=== PATIENT | female | born 1980 | race Caucasian/White ===

== ENCOUNTER → 2016-06-23 | Outpatient (CLI) | payer OTHER ==
[~2016-06-23] MED LIST: CETI5TAB5 PO; CETICHW4 PO; DOCU-94 PO; EPP3/2 IM; FMR25 PO; PRENTAB26 PO; PSYL0.524 PO; RANTIDINE
== END | disposition home or self-care (01) ==
LOC: C.LAB 13:29
PROVIDERS: ATTEND Obstetrics & Gynecology
DX: Z32.00 Encounter for pregnancy test, result unknown (principal)

== ENCOUNTER → 2016-07-11 | Outpatient (CLI) | payer OTHER ==
[2016-07-11 20:15] LABS: MANUAL MICROSCOPIC REQUIRED? NO; REVIEW REQ? NO; URINE APPEARANCE CLEAR (CLEAR); URINE BILIRUBIN NEG (NEG); URINE NITRITE NEG (NEG); URINE PH 5.5 (4.5-7.5); URINE SPECIFIC GRAVITY 1.008 (1.000-1.030); UROBILINOGEN NEG (NEG)
[2016-07-11 20:16] LABS: URINE COLOR YELLOW
== END | disposition home or self-care (01) ==
LOC: C.LABSPEC 17:38
PROVIDERS: ATTEND Obstetrics & Gynecology
DX: O09.00 Supervision of pregnancy with history of infertility, unspecified trimester (principal); Z3A.00 Weeks of gestation of pregnancy not specified

== ENCOUNTER → 2016-07-18 | Outpatient (CLI) | payer OTHER ==
[2016-07-22 09:32] LABS: CHLAMYDIA TRACH RNA*** NOT DETECTED (NOT DETECTED); GC (NEIS GONORRHOEAE)RNA** NOT DETECTED (NOT DETECTED)
== END | disposition home or self-care (01) ==
LOC: C.LABSPEC 17:29
PROVIDERS: ATTEND Obstetrics & Gynecology
DX: O09.00 Supervision of pregnancy with history of infertility, unspecified trimester (principal); Z3A.00 Weeks of gestation of pregnancy not specified

== ENCOUNTER → 2016-07-21 | Outpatient (CLI) | payer OTHER ==
[2016-07-21 07:04] LABS: PATIENT HEIGHT 162.6 cm
[2016-07-21 10:20] LABS: URINE TOTAL PROTEIN 8.4 mg/dl (0-11.9)
[2016-07-21 11:08] LABS: CREATININE 0.62 mg/dl (0.6-1.2); URINE TOTAL PROTEIN CALC 113.4 mg/24 hr (0-149.1)
== END | disposition home or self-care (01) ==
LOC: C.LABSPEC 06:51
PROVIDERS: ATTEND Obstetrics & Gynecology
DX: O10.911 Unspecified pre-existing hypertension complicating pregnancy, first trimester (principal); Z3A.00 Weeks of gestation of pregnancy not specified

== ENCOUNTER 2016-08-13 14:38 | Emergency (ER) | payer OTHER ==
[~2016-08-13] VITALS: Ht 162.6 cm; Wt 75.8 kg
[~2016-08-13 14:38] MED LIST changes: -CETI5TAB5 PO; -DOCU-94 PO; -EPP3/2 IM; -PSYL0.524 PO; -RANTIDINE
[2016-08-13 14:59] VITALS: TEMP 37; Ht 162.6 cm; Wt 75.8 kg
[2016-08-13] MEDS ORDERED: ACETAMINOPHEN 325 MG TAB PO STA (15:17)
[2016-08-13] MEDS ORDERED: DOCU-94 PO (15:52)
[2016-08-13] MEDS ORDERED: PRENTAB26 PO (15:52)
[2016-08-13] MEDS ORDERED: PSYL0.524 PO (15:52)
[2016-08-13 15:53] LABS: BASO % 0.4 %; BASO ABS # 0.03 K/uL (0-0.2); COMPLETE YES; IG% 0.1 %; LYMPH % 33.5 %; LYMPH ABS # 2.61 K/uL (1.2-3.4); MEAN CELL VOLUME 82.8 fL (80-100); MEAN CORPUSCULAR HEMOGLOBIN 29.3 pg (25-34); MEAN CORPUSCULAR HGB CONC 35.4 g/dl (32-36); MEAN PLATELET VOLUME 8.8 fL (7.4-10.4); MONO % 7.6 %; NEUT % 57.4 %; PLATELET COUNT 263 K/uL (130-400); RED BLOOD COUNT 4.47 M/uL (4.2-5.4)
[2016-08-13] MEDS ORDERED: EPP3/2 IM (15:53)
[2016-08-13 16:04] LABS: URINE APPEARANCE CLEAR (CLEAR); URINE BILIRUBIN NEG (NEG); URINE COLOR YELLOW; URINE NITRITE NEG (NEG); UROBILINOGEN NEG (NEG); ZZUR CULT IF INDIC CLEAN CATCH NO
[2016-08-13 16:06] LABS: MANUAL MICROSCOPIC REQUIRED? NO; REVIEW REQ? NO
[2016-08-13 16:22] LABS: ALT/SGPT 21 U/L (12-78); AST/SGOT 11 U/L (15-37); BLOOD UREA NITROGEN 8 mg/dl (7-18); BUN/CREATININE RATIO 12.9 (10-20); CALCIUM 9.1 mg/dl (8.5-10.1); CARBON DIOXIDE 22 mmol/L (21-32); CHLORIDE 106 mmol/L (98-107); CREATININE 0.64 mg/dl (0.60-1.20); GLUCOSE 82 mg/dl (70-99); MAGNESIUM 2.3 mg/dl (1.8-2.4); POTASSIUM 3.4 mmol/L (3.5-5.1); SODIUM 138 mmol/L (136-145)
[2016-08-13 16:30] LABS: ALKALINE PHOSPHATASE 74 U/L (45-117); THYROID STIMULATING HORMONE 0.953 uIu/ml (0.300-4.500)
--- NOTE | 2016-08-13 17:12 | EMERGENCY ROOM VISIT NOTE ---
History First contact with patient: 15:06 Chief Complaint: HYPERTENSION Stated Complaint: HIGH BP-12 WKS. , REFERRED BY PCP History of Present Illness The patient is a 36 year old female who presents to the Emergency Department by private vehicle for evaluation of her elevated blood pressure. The patient reports that she has full weeks . They did have difficulty conceiving and has had a closely monitored to this point. She does have a history of essential hypertension for which she was on Norvasc approximately 5 years ago. Her blood pressure has been controlled by diet and exercise most recently. She has had an RIGHT-sided mild, dull, headache over the past 3 days. She felt somewhat jittery today as well. She had her blood pressure taken by a nurse in this facility and it was found to be 154/103. This concerned the patient so she contacted her [facility] office who she reports had initiated an evaluation to monitor her blood pressure throughout her . She spoke with Dr. Oliva who had referred the patient over to her primary care provider. She then spoke with Dr. Cheung who subsequently referred the patient to the emergency Department for further evaluation and management. The patient still complains of a mild RIGHT-sided headache. This is not the worst headache of her life. She reports no other associated symptoms. She rates her discomfort a 3/10. She is tried nothing for pain at this point. She denies any dizziness, lightheadedness, blurry vision, double vision, tinnitus, nausea, vomiting, neck pain/stiffness, chest pain, palpitations, short of breath, pleuritic pain, or abdominal pain. She denies any vaginal bleeding or discharge. She reports no pelvic pain or cramping. Review of Systems A complete 10-point Review of Systems was discussed with the patient, with pertinent positives and negatives listed in the History of Present Illness. All remaining Review of Systems questions can be considered negative unless otherwise specified. Social History Smoking Status: Never Smoker Smokeless Tobacco Use: No Alcohol Use: occasionally Marital Status: Housing Status: lives with significant other Occupation Status: employed Current/Historical Medications Scheduled Multivit/Min/Iron/Fol Ac/Pren ( Vitamin), 2 TABS PO DAILY Scheduled PRN Docusate Sodium (Colace), 100 MG PO BID PRN for Constipation Epinephrine (Epipen), 0.3 MG IM UD PRN for ALLERGIC REACTION Psyllium (Metamucil), 1 DOSE PO UD PRN for Constipation Allergies Coded Allergies: Latex1 -Allergic Contact Dermititis (Verified Allergy, Mild, RASH, 11/16/14 ) Loratadine (Verified Allergy, Mild, HIVES, 11/16/14) Benzyl Alcohol (Verified Allergy, Unknown, ITCHY, 11/16/14) Prochlorperazine (Verified Allergy, Unknown, ITCHY, 11/16/14) Saccharin (Verified Allergy, Unknown, ITCHY, 11/16/14) Sulfa Antibiotics (Verified Allergy, Unknown, RASH, 11/16/14) Physical Exam Vital Signs Date Time Temp Pulse Resp B/P Pulse Ox O2 Delivery O2 Flow Rate FiO2 08/13/16 17:33 86 16 122/78 97 08/13/16 16:37 78 08/13/16 15:29 120 18 136/92 96 Room Air 08/13/16 14:59 37.0 106 16 145/95 98 Room Air Pain Rating (0-10): 4 Physical Exam VITAL SIGNS - Vital signs and nursing notes were reviewed. GENERAL - 36-year-old female appearing her stated age who is in no acute distress. Communicates well with provider and answers questions appropriately. HEAD - Normocephalic, Atraumatic. No Meyers's Sign or Raccoon's Eyes. No depressed skull fractures palpable. EYES - PERRL with EOMI bilaterally. Sclera anicteric. Palpebral conjunctiva pink and moist with no injection noted. EARS - No deformities of external structures noted on gross examination bilaterally. No pain elicited with palpation of the tragus bilaterally. External auditory canals without discharge or otorrhea. Tympanic membranes pearly swanson without retraction or bulging. NOSE - Midline and without cyanosis. No epistaxis or purulent drainage noted. Septum midline without deviation or septal hematoma noted. MOUTH/OROPHARYNX - Without perioral cyanosis. Buccal mucosa pink and moist and without leukoplakia. Tongue midline with equal elevation of palate bilaterally. No tonsillar hypertrophy, erythema, or exudates noted. Good dentition noted. NECK - Neck with FROM. Supple to palpation. No lymphadenopathy noted. No nuchal rigidity. LUNGS - Chest wall symmetric without accessory muscle use, intercostals retractions, or central cyanosis. Normal vesicular breath sounds CTA B/L. No wheezes, rales, or rhonchi appreciated. CARDIAC - RRR with S1/S2. No murmur, rubs, or gallops appreciated. ABDOMEN - Abdominal contour flat and without pulsations or visible masses. BS normoactive all four quadrants. No tenderness, palpable masses, hepatosplenomegaly, or ascites noted. EXTREMITIES - No pretibial edema present. +3/5 radial and dorsalis pedis pulses palpated throughout. FROM with no tremors, fasciculations, or clonus noted on PROM throughout. +5/5 strength noted in UE/LE bilaterally. NEUROLOGIC - Cranial nerves II through XII grossly intact. Sensory intact to light touch throughout. PSYCH - A&Ox3 and cooperates fully with examiner. Pt is very pleasant and interacts well with examiner. Medical Decision & Procedures Laboratory Results 08/13/16 15:25 Red Blood Count 4.47, Mean Corpuscular Volume 82.8, Mean Corpuscular Hemoglobin 29.3, Mean Corpuscular Hemoglobin Concent 35.4, Mean Platelet Volume 8.8, Neutrophils (%) (Auto) 57.4, Lymphocytes (%) (Auto) 33.5, Monocytes (%) (Auto) 7.6, Eosinophils (%) (Auto) 1.0, Basophils (%) (Auto) 0.4, Neutrophils # (Auto) 4.48, Lymphocytes # (Auto) 2.61, Monocytes # (Auto) 0.59, Eosinophils # (Auto) 0.08, Basophils # (Auto) 0.03 08/13/16 15:25 Test 08/13/16 15:25 08/13/16 15:30 White Blood Count 7.80 K/uL (4.8-10.8) Red Blood Count 4.47 M/uL (4.2-5.4) Hemoglobin 13.1 g/dL (12.0-16.0) Hematocrit 37.0 % (37-47) Mean Corpuscular Volume 82.8 fL (80-100) Mean Corpuscular Hemoglobin 29.3 pg (25-34) Mean Corpuscular Hemoglobin Concent 35.4 g/dl (32-36) Platelet Count 263 K/uL (130-400) Mean Platelet Volume 8.8 fL (7.4-10.4) Neutrophils (%) (Auto) 57.4 % Lymphocytes (%) (Auto) 33.5 % Monocytes (%) (Auto) 7.6 % Eosinophils (%) (Auto) 1.0 % Basophils (%) (Auto) 0.4 % Neutrophils # (Auto) 4.48 K/uL (1.4-6.5) Lymphocytes # (Auto) 2.61 K/uL (1.2-3.4) Monocytes # (Auto) 0.59 K/uL (0.11-0.59) Eosinophils # (Auto) 0.08 K/uL (0-0.5) Basophils # (Auto) 0.03 K/uL (0-0.2) RDW Standard Deviation 41.0 fL (36.4-46.3) RDW Coefficient of Variation 13.6 % (11.5-14.5) Immature Granulocyte % (Auto) 0.1 % Immature Granulocyte # (Auto) 0.01 K/uL (0.00-0.02) Anion Gap 10.0 mmol/L (3-11) Est Creatinine Clear Calc Drug Dose 123.5 ml/min Estimated GFR () 134.9 Estimated GFR (Non- 116.4 BUN/Creatinine Ratio 12.9 (10-20) Calcium Level 9.1 mg/dl (8.5-10.1) Phosphorus Level 4.0 mg/dl (2.5-4.9) Magnesium Level 2.3 mg/dl (1.8-2.4) Total Bilirubin 0.3 mg/dl (0.2-1) Aspartate Amino Transf (AST/SGOT) 11 U/L (15-37) Alanine Aminotransferase (ALT/SGPT) 21 U/L (12-78) Alkaline Phosphatase 74 U/L (45-117) Total Creatine Kinase 59 U/L (26-192) Creatine Kinase MB < 0.5 ng/ml (0.5-3.6) Creatine Kinase MB Ratio (0-3.0) Troponin I < 0.015 ng/ml (0-0.045) Total Protein 7.9 gm/dl (6.4-8.2) Albumin 4.0 gm/dl (3.4-5.0) Globulin 3.9 gm/dl (2.5-4.0) Albumin/Globulin Ratio 1.0 (0.9-2) Lipase 174 U/L (73-393) Thyroid Stimulating Hormone (TSH) 0.953 uIu/ml (0.300-4.500) Urine Color YELLOW Urine Appearance CLEAR (CLEAR) Urine pH 6.0 (4.5-7.5) Urine Specific Docena 1.000 (1.000-1.030) Urine Protein NEG (NEG) Urine Glucose (UA) NEG (NEG) Urine Ketones NEG (NEG) Urine Occult Blood NEG (NEG) Urine Nitrite NEG (NEG) Urine Bilirubin NEG (NEG) Urine Urobilinogen NEG (NEG) Urine Leukocyte Esterase NEG (NEG) Medications Administered Medications (Trade) Dose Ordered Sig/Flori Route Start Time Stop Time Status Last Admin Dose Admin Acetaminophen (Tylenol Tab) 650 mg NOW STAT PO 08/13/16 15:17 08/13/16 15:20 DC 08/13/16 15:27 325 MG Procedure Patient was placed on the cardiac rn and monitored throughout the entire extent of their stay. In addition, the patient's pulse oximetry was monitored throughout the entire stay. Any abnormalities or aberrancies were addressed appropriately. ECG Indication: other (hypertension) Rate (beats per minute): 95 Rhythm: normal sinus Findings: no acute ischemic change, no ectopy Change: no significant change (from 03/06/2016.) ED Course Patient was seen and evaluated by myself. Labs were drawn, saline lock in place. EKG was obtained. Patient was provided 650 mg Tylenol orally. She declines and only takes 325. Laboratory results demonstrate no acute leukocytosis, worrisome anemia, or bandemia. The patient has no significant electrolyte abnormalities. Cardiac enzymes are negative. Urinalysis does not suggest infection. I did discuss the case with the on-call [facility], Dr. Low. He sees no reason for medication or intervention otherwise this time. She is a follow-up appointment on Thursday. He suggests she keep this appointment at this time. Patient was educated on today's findings. She was educated on worrisome symptoms for return visit to the emergency department. Patient discharged home afebrile and in good condition. Medical Decision Given the patient's presentation and stated complaints, I did elect to perform the above-mentioned workup. Patient presents today with elevated blood pressure while taking her blood pressure in the work setting. Patient is anxious appearing. She has no pelvic cramping or vaginal bleeding of concern for . Her blood pressure was initially mildly elevated in triage. This decline nicely without real intervention. She was provided Tylenol for headache. She has no focal neurological deficits. This is not the worst of her life. I do not feel imaging studies are necessary at this point. The patient's labs are essentially unremarkable. The patient will follow-up with her [facility] on Thursday as scheduled. She will return for any changing or worsening symptoms. Patient discharged home in good condition. In the evaluation and treatment of this patient, the following differential diagnoses were considered: ACS, TN, PE, intracranial hemorrhage, CVA, TIA, preeclampsia, amongst others. Impression Primary Impression: Hypertension Additional Impression: Departure Information Dispostion Home / Self-Care Condition GOOD Referrals Catrachito Cheung D.O. (PCP) Yazan Low M.D. Patient Instructions My [facility] Additional Instructions You've been seen in the emergency department today for your hypertension. Please follow-up with your [facility] as scheduled. Return for any changing or worsening symptoms. Problem Qualifiers Primary Impression: Hypertension Hypertension type: unspecified secondary hypertension Qualified Codes: I15.9 - Secondary hypertension, unspecified Additional Impression: Weeks of gestation: 12 weeks Qualified Codes: Z3A.12 - 12 weeks gestation of
[2016-08-13 17:33] VITALS: BP 122/78; PULSE 86; O2SAT 97
== END 2016-08-13 17:35 | disposition home or self-care (01) ==
LOC: C.EDB 14:39 → C.EDD 17:35
DX: O10.011 Pre-existing essential hypertension complicating pregnancy, first trimester (principal); Z3A.12 12 weeks gestation of pregnancy

== ENCOUNTER → 2016-09-12 | Outpatient (CLI) | payer OTHER ==
[~2016-09-12] MED LIST changes: +CETI5TAB5 PO; -CETICHW4 PO; +DOCU-94 PO; +EPP3/2 IM; -FMR25 PO; +PSYL0.524 PO; +RANTIDINE
[2016-09-12 17:25] LABS: GTGD 50 Grams
[2016-09-17 08:34] LABS: AFP CONCENTRATION 25.6 NG/ML; AFP MULTIPLE OF MEDIAN 0.87; AFPTS INSULIN DEP DIABETIC? NO; AFPTS MATERNAL WT 173 LBS; ALPHA-FETOPROTEIN RACE CAUCASIAN=W; HISTORY OF NTD NO; REPEAT SAMPLE? NO
== END | disposition home or self-care (01) ==
LOC: C.LAB1850 15:44
PROVIDERS: ATTEND Obstetrics & Gynecology
DX: O09.511 Supervision of elderly primigravida, first trimester (principal)

== ENCOUNTER → 2016-09-16 | Outpatient (CLI) | payer OTHER | END | disposition home or self-care (01) | LOC: C.LAB 06:43 | PROVIDERS: ATTEND Obstetrics & Gynecology | DX: O09.522 Supervision of elderly multigravida, second trimester (principal); Z3A.00 Weeks of gestation of pregnancy not specified ==

== ENCOUNTER → 2016-12-08 | Outpatient (CLI) | payer OTHER ==
[2016-12-08 18:59] LABS: URINE APPEARANCE CLEAR (CLEAR); URINE BILIRUBIN NEG (NEG); URINE COLOR YELLOW; URINE EPITHELIAL CELL AUTO >30 /lpf (0-5); URINE NITRITE NEG (NEG); URINE PH 6.5 (4.5-7.5); URINE SPECIFIC GRAVITY 1.011 (1.000-1.030); UROBILINOGEN NEG (NEG)
[2016-12-08 19:01] LABS: MANUAL MICROSCOPIC REQUIRED? NO; REVIEW REQ? NO
== END | disposition home or self-care (01) ==
LOC: C.LABSPEC 17:21
PROVIDERS: ATTEND Obstetrics & Gynecology
DX: O09.92 Supervision of high risk pregnancy, unspecified, second trimester (principal)

== ENCOUNTER → 2016-12-12 | Outpatient (CLI) | payer OTHER ==
[~2016-12-12] MED LIST changes: -CETI5TAB5 PO; -RANTIDINE
[2016-12-12 18:53] LABS: GTGD 50 Grams
== END | disposition home or self-care (01) ==
LOC: C.LAB 14:46
PROVIDERS: ATTEND Obstetrics & Gynecology
DX: O09.92 Supervision of high risk pregnancy, unspecified, second trimester (principal); Z3A.00 Weeks of gestation of pregnancy not specified

== ENCOUNTER 2016-12-17 14:51 | Outpatient (CLI) | payer OTHER ==
[2016-12-17] MEDS ORDERED: LACTATED RINGER'S 1000ML 500 ML IV ONE (15:46)
== END 2016-12-17 17:46 | disposition home or self-care (01) ==
LOC: C.OPB 14:51 → C.LD 14:51 → C.OPB 17:46
PROVIDERS: ATTEND Obstetrics & Gynecology
DX: O99.89 Other specified diseases and conditions complicating pregnancy, childbirth and the puerperium (principal); M54.9 Dorsalgia, unspecified; O16.3 Unspecified maternal hypertension, third trimester; Z3A.29 29 weeks gestation of pregnancy

== ENCOUNTER 2017-01-30 16:01 | Outpatient (CLI) | payer OTHER ==
[~2017-01-30] VITALS: Ht 160 cm; Wt 92.1 kg
[~2017-01-30 16:01] MED LIST changes: -CETI5TAB5 PO; -RANTIDINE
[2017-01-30 16:34] VITALS: Ht 160 cm; Wt 92.1 kg
[2017-01-30] MEDS ORDERED: CETI5TAB5 PO (16:34)
[2017-01-30] MEDS ORDERED: RANTIDINE (16:34)
[2017-01-30 17:24] LABS: BASO % 0.2 %; BASO ABS # 0.02 K/uL (0-0.2); COMPLETE YES; EOS % 0.8 %; HEMATOCRIT 36.1 % (37-47); IG% 0.5 %; LYMPH % 27.6 %; LYMPH ABS # 2.69 K/uL (1.2-3.4); MEAN CELL VOLUME 85.3 fL (80-100); MEAN CORPUSCULAR HEMOGLOBIN 28.8 pg (25-34); MEAN CORPUSCULAR HGB CONC 33.8 g/dl (32-36); MEAN PLATELET VOLUME 9.6 fL (7.4-10.4); MONO % 10.4 %; NEUT % 60.5 %; PLATELET COUNT 228 K/uL (130-400); RED BLOOD COUNT 4.23 M/uL (4.2-5.4); WHITE BLOOD COUNT 9.75 K/uL (4.8-10.8)
[2017-01-30 17:29] LABS: ALT/SGPT 23 U/L (12-78); BLOOD UREA NITROGEN 6 mg/dl (7-18); BUN/CREATININE RATIO 11.5 (10-20); CARBON DIOXIDE 20 mmol/L (21-32); CHLORIDE 110 mmol/L (98-107); CREATININE 0.52 mg/dl (0.60-1.20); GLUCOSE 69 mg/dl (70-99); POTASSIUM 3.5 mmol/L (3.5-5.1); SODIUM 139 mmol/L (136-145)
[2017-01-30 17:32] LABS: ALB/GLOB RATIO 0.7 (0.9-2); ALKALINE PHOSPHATASE 152 U/L (45-117); AST/SGOT 16 U/L (15-37)
== END 2017-01-30 18:13 | disposition home or self-care (01) ==
LOC: C.OPB 16:01 → C.LD 16:02 → C.OPB 18:13
PROVIDERS: ATTEND Obstetrics & Gynecology
DX: Z34.83 Encounter for supervision of other normal pregnancy, third trimester (principal); Z3A.37 37 weeks gestation of pregnancy

== ENCOUNTER → 2017-01-30 | Outpatient (CLI) | payer OTHER ==
[~2017-01-30] MED LIST changes: +CETI5TAB5 PO; +RANTIDINE
== END | disposition home or self-care (01) ==
LOC: C.LABSPEC 17:36
PROVIDERS: ATTEND Obstetrics & Gynecology
DX: O09.93 Supervision of high risk pregnancy, unspecified, third trimester (principal)

== ENCOUNTER 2017-02-19 19:42 | Outpatient (CLI) | payer OTHER ==
[~2017-02-19] VITALS: Ht 162.6 cm; Wt 93.2 kg
[~2017-02-19 19:42] MED LIST changes: +CETI5TAB5 PO; -EPP3/2 IM; -PSYL0.524 PO; +RANTIDINE
[2017-02-19 20:39] VITALS: Ht 162.6 cm; Wt 93.2 kg
== END 2017-02-19 21:42 | disposition home or self-care (01) ==
LOC: C.LD 19:42 → C.OPB 19:42
PROVIDERS: ATTEND Obstetrics & Gynecology
DX: O16.3 Unspecified maternal hypertension, third trimester (principal); O09.523 Supervision of elderly multigravida, third trimester; Z3A.38 38 weeks gestation of pregnancy

== ENCOUNTER 2017-02-20 07:35 | Inpatient (IN) | payer OTHER ==
[~2017-02-20] VITALS: Ht 162.6 cm; Wt 93.0 kg
[2017-02-20] MEDS ORDERED: LACTATED RINGER'S 1000ML 1,000 ML IV PRN (09:04)
[2017-02-20] MEDS ORDERED: LACTATED RINGER'S 1000ML 500 ML IV PRN ×2 (09:06→13:16)
[2017-02-20] MEDS ORDERED: DOCUSATE SODIUM 100 MG CAP PO PRN (09:15)
[2017-02-20] MEDS ORDERED: OXYTOCIN 30 UNITS/500ML NSS IV PRN ×2 (09:15→22:15)
[2017-02-20 09:31] LABS: MEAN CELL VOLUME 84.9 fL (80-100); MEAN CORPUSCULAR HEMOGLOBIN 28.7 pg (25-34); MEAN CORPUSCULAR HGB CONC 33.8 g/dl (32-36); MEAN PLATELET VOLUME 9.7 fL (7.4-10.4); PLATELET COUNT 251 K/uL (130-400); RED BLOOD COUNT 4.36 M/uL (4.2-5.4)
[2017-02-20] MEDS: LACTATED RINGER'S 1000ML 1,000 ML IV SCH ×2 (09:40→16:05)
[2017-02-20 09:47] VITALS: Ht 162.6 cm; Wt 93.0 kg
[2017-02-20] MEDS ORDERED: EpHEDrine SULFATE INJ 50 MG/ML AMP ONE (12:29)
[2017-02-20] MEDS ORDERED: BUPIVACAINE 0.25% 30 ML VIAL ONE (12:29)
[2017-02-20] MEDS ORDERED: FENTANYL 2MCG/ML ROPIV 1.25MG/ML 100ML BAG EPI ONE (12:30)
[2017-02-20] MEDS ORDERED: FENTANYL CITRATE INJ 50 MCG/1 ML 2 ML VIAL ONE (12:30)
[2017-02-20] MEDS ORDERED: NALOXONE HCL INJ 1 MG in SODIUM CHLORIDE 0.9% 1000ML 1,000 ML IV PRN (13:16)
[2017-02-20] MEDS ORDERED: NALBUPHINE HCL INJ 10 MG/ML AMP IV PRN (13:30)
[2017-02-20] MEDS ORDERED: DiphenhydrAMINE HCL 50 MG/ML VIAL IV PRN (13:30)
[2017-02-20] MEDS ORDERED: ONDANSETRON INJ 2 MG/ML 2 ML VIAL IV PRN (13:30)
[2017-02-20] MEDS ORDERED: NALOXONE HCL INJ 0.4 MG/1 ML VIAL/CARP IV PRN (13:30)
[2017-02-20] MEDS ORDERED: EpHEDrine SULFATE INJ 50 MG/ML AMP IV PRN (13:30)
[2017-02-20] MEDS: FENTANYL 2MCG/ML ROPIV 1.25MG/ML 100ML BAG EPI PRN ×3 (15:12→20:06)
[2017-02-20] MEDS ORDERED: NURSING VERBAL MED ORDER ONE (20:45)
[2017-02-20] MEDS ORDERED: CARBOPROST TROMETHAMINE 250 MCG/ML AMP ONE (20:56)
[2017-02-20] MEDS ORDERED: MoRPHine SULFATE 10 MG/ML CARP/VIAL ONE (20:57)
[2017-02-20 20:59] LABS: HEMATOCRIT 34.4 % (37-47); MEAN CELL VOLUME 86.4 fL (80-100); MEAN CORPUSCULAR HEMOGLOBIN 28.6 pg (25-34); MEAN PLATELET VOLUME 9.2 fL (7.4-10.4); PLATELET COUNT 219 K/uL (130-400); RED BLOOD COUNT 3.98 M/uL (4.2-5.4)
[2017-02-20 21:02] LABS: MEAN CORPUSCULAR HGB CONC 33.1 g/dl (32-36)
[2017-02-20] MEDS ORDERED: LABETALOL HCL IV 5 MG/ML 20ML IV STA ×2 (21:06→21:07)
[2017-02-20 21:24] LABS: BUN/CREATININE RATIO 10.4 (10-20); CREATININE 0.72 mg/dl (0.60-1.20); POTASSIUM 3.5 mmol/L (3.5-5.1); URIC ACID 4.9 mg/dl (2.6-7.2)
[2017-02-20 21:30] LABS: ALB/GLOB RATIO 0.7 (0.9-2)
[2017-02-20] MEDS ORDERED: OXYCODONE/ACETAMINOPHEN 5-325 TAB PO PRN (22:15)
[2017-02-20] MEDS ORDERED: CARBOPROST TROMETHAMINE 250 MCG/ML AMP IM ONE (22:15)
[2017-02-20] MEDS ORDERED: HYDROCORTISONE ACETATE 25 MG SUPP PR PRN (22:15)
[2017-02-20] MEDS ORDERED: LANOLIN OINT EXT PRN ×2 (22:15)
[2017-02-20] MEDS ORDERED: BENZOCAINE 20% AER SPR 82.5 GM CAN EXT PRN (22:15)
[2017-02-20] MEDS ORDERED: SUPERCREAM 0.870 % 15GM JAR EXT PRN (22:15)
--- NOTE | 2017-02-20 23:23 | Anesthesia Procedure Note ---
Anesthesia Epidural Removal Nt Date & Time Feb 20, 2017 at 23:23 Vital Signs Pain Intensity: 1 Notes Mental Status: alert / awake / arousable, participated in evaluation Nausea / Vomiting: adequately controlled Pain: adequately controlled Airway Patency, RR, SpO2: stable & adequate BP & HR: stable & adequate Hydration State: stable & adequate Neuraxial Anesthesia: was administered Anesthetic Complications: no major complications apparent, pt satisfied with anesthetic care Epidural: removed without complications, with tip intact
--- NOTE | 2017-02-21 00:31 | DELIVERY SUMMARY ---
DATE OF OPERATION: 02/20/2017 PROCEDURE: Spontaneous vaginal delivery under epidural anesthesia with repair of cervical laceration and second-degree perineal laceration. SURGEON: Dr. Oliva. PREDELIVERY DIAGNOSES: 1. 37-year-old G2, P0-0-1-0 at 41 and 0. 2. Chronic hypertension. 3. Induction of labor. POSTDELIVERY DIAGNOSES: Same plus cervical laceration. ESTIMATED BLOOD LOSS: 500 mL. MEDICATIONS GIVEN: Hemabate. FINDINGS: Viable female with Apgars 8 and 9. Weight pending. Please see nursery records. DESCRIPTION OF DELIVERY: The patient progressed to complete with epidural anesthesia. She then began to push. She spontaneously vaginally delivered a viable female from the cephalic presentation with the head in the left occiput anterior position. The head delivered. No nuchal cord was noted. The anterior shoulder delivered, followed by the posterior shoulder, followed by the body. The baby was then placed on mother's abdomen. Delayed cord clamping was performed. The cord was then doubly clamped and cut. After waiting 1 minute, cord blood was obtained. The placenta was delivered spontaneously intact with a 3-vessel cord. The uterus and vagina were swept of all clots and debris. Pitocin was given. A second-degree perineal laceration was noted and repaired in standard fashion with 3-0 Vicryl. The patient continued to have bleeding. The fundus was firm. The cervix was inspected and a cervical laceration on the posterior aspect at approximately 6 o'clock was noted and was repaired with 3-0 Vicryl. Hemostasis was achieved. Sponge, instrument and needle counts were correct x2 at the conclusion of the delivery. The patient and the baby tolerated the delivery well. Vaginal packing was placed in the vagina to add some additional pressure to maintain hemostasis. This was checked 30 minutes after delivery and just a small amount of serosanguineous material was on the packing and it will be pulled at approximately 60 minutes after delivery to recheck bleeding. I attest to the content of the Intraoperative Record and any orders documented therein. Any exception s are noted below.
[2017-02-21 01:00] VITALS: BP 116/70; PULSE 97; TEMP 36.8
[2017-02-21] MEDS: IBUPROFEN 600 MG TAB PO PRN ×4 (01:16→17:09)
[2017-02-21 03:30] VITALS: BP 111/65; PULSE 89; TEMP 36.8; O2SAT 98
[2017-02-21 07:49] VITALS: BP 131/87; PULSE 84; TEMP 36.6; O2SAT 99
--- NOTE | 2017-02-21 08:02 | Progress Note ---
Subjective Feb 21, 2017. Subjective conversation w/ patient, physical exam, chart review, lab review Ambulation: ambulating normally Voiding: no voiding problems Passing Gas: Yes Diet Tolerance: Regular Diet Lochia: Moderate Feeding Type: Breast Feeding Pain: controlled Review of Systems Respiratory: No shortness of breath Cardiac: No chest pain Abdomen: No nausea, No vomiting Female : No dysuria Objective Vital Signs Date Time Temp Pulse Resp B/P (MAP) Pulse Ox O2 Delivery O2 Flow Rate FiO2 02/21/17 07:49 36.6 84 18 131/87 (102) 99 Room Air 02/21/17 03:30 36.8 89 20 111/65 (80) 98 Room Air 02/21/17 01:00 36.8 97 20 116/70 (85) Room Air 02/21/17 01:00 Room Air Physical Exam General Appearance: WELL-APPEARING, WD/WN, NO APPARENT DISTRESS Respiratory/Chest: lungs clear, normal breath sounds, no respiratory distress Cardiovascular: regular rate, rhythm, no gallop Abdomen: normal bowel sounds, soft Fundus: Firm, Tender (appropriately tender), Relation to Umbilicus (at level of U) Extremities: no calf tenderness Laboratory Results Last 24 Hours Test 02/20/17 09:12 02/20/17 20:48 02/21/17 05:27 White Blood Count 12.40 K/uL 14.60 K/uL Red Blood Count 4.36 M/uL 3.98 M/uL Hemoglobin 12.5 g/dL 11.4 g/dL 10.1 g/dL Hematocrit 37.0 % 34.4 % 31.0 % Mean Corpuscular Volume 84.9 fL 86.4 fL Mean Corpuscular Hemoglobin 28.7 pg 28.6 pg Mean Corpuscular Hemoglobin Concent 33.8 g/dl 33.1 g/dl RDW Standard Deviation 45.1 fL 46.8 fL RDW Coefficient of Variation 14.6 % 14.9 % Platelet Count 251 K/uL 219 K/uL Mean Platelet Volume 9.7 fL 9.2 fL Sodium Level 139 mmol/L Potassium Level 3.5 mmol/L Chloride Level 108 mmol/L Carbon Dioxide Level 21 mmol/L Anion Gap 10.0 mmol/L Blood Urea Nitrogen 8 mg/dl Creatinine 0.72 mg/dl Est Creatinine Clear Calc Drug Dose 120.6 ml/min Estimated GFR () 125.8 Estimated GFR (Non- 108.5 BUN/Creatinine Ratio 10.4 Random Glucose 87 mg/dl Uric Acid 4.9 mg/dl Calcium Level 8.0 mg/dl Total Bilirubin 0.4 mg/dl Aspartate Amino Transf (AST/SGOT) 15 U/L Alanine Aminotransferase (ALT/SGPT) 17 U/L Alkaline Phosphatase 170 U/L Total Protein 6.2 gm/dl Albumin 2.5 gm/dl Globulin 3.7 gm/dl Albumin/Globulin Ratio 0.7 Assessment and Plan Post- Day#: 1 Continue Routine Care: - Vital Signs reviewed and WNL. - Hgb 10.1 (yesterday 11.4. On admission was 12.5.) - Blood Type: A+, GBS - , Rubella Immune. - Monitor and Control pain with Motrin PRN, resume regular diet as tolerated, Monitor Lochia. - Encourage breast feeding. - Pt is doing well clinically. Denies headaches or dizziness. - Continue routine post care. BRIAN ESPARZA PGY1 FM RESIDENT Resident Physician Supervision Note: I was present with Dr. Esparza during the history and exam. I discussed the case with the resident and agree with the findings and plan as documented in the note. Any exceptions or clarifications are listed here: PPD#1, doing well. Continue routine care. Documented By: Fatoumata Oliva Resident Tracking Resident Involvement: Resident Care Provided Care Provided: OB Delivery
[2017-02-21] MEDS: DOCUSATE SODIUM 100 MG CAP PO SCH ×2 (08:15→20:19)
[2017-02-21] MEDS: CETIRIZINE HCL 10 MG TAB PO SCH (08:15)
[2017-02-21 12:00] VITALS: BP 147/93; PULSE 91; TEMP 36.7
[2017-02-21 17:00] VITALS: BP 137/86; PULSE 85; TEMP 36.6; O2SAT 99
[2017-02-21] MEDS ORDERED: BISACODYL 5 MG TABEC PO SCH (20:00)
[2017-02-21 20:15] VITALS: BP 128/84; PULSE 89; TEMP 36.8
[2017-02-22 00:40] VITALS: BP 139/89; PULSE 99; TEMP 36.7
[2017-02-22] MEDS: IBUPROFEN 600 MG TAB PO PRN (06:45)
[2017-02-22] MEDS: CETIRIZINE HCL 10 MG TAB PO SCH (07:54)
[2017-02-22] MEDS: DOCUSATE SODIUM 100 MG CAP PO SCH (07:55)
[2017-02-22 08:27] VITALS: BP 143/94; PULSE 94; TEMP 36.7
--- NOTE | 2017-02-22 09:17 | Progress Note ---
Subjective Feb 22, 2017. Subjective conversation w/ patient, physical exam, lab review Ambulation: ambulating normally Voiding: no voiding problems Passing Gas: Yes Diet Tolerance: Regular Diet Lochia: Small Feeding Type: Breast Feeding Pain: controlled Objective Vital Signs Date Time Temp Pulse Resp B/P (MAP) Pulse Ox O2 Delivery O2 Flow Rate FiO2 02/22/17 08:27 36.7 94 20 143/94 (110) 02/22/17 00:40 36.7 99 20 139/89 (106) Room Air 02/22/17 00:40 Room Air 02/21/17 20:15 36.8 89 20 128/84 (99) Room Air 02/21/17 17:00 36.6 85 19 137/86 (103) 99 Room Air 02/21/17 12:00 36.7 91 18 147/93 (111) Physical Exam General Appearance: WELL-APPEARING, WD/WN, NO APPARENT DISTRESS Respiratory/Chest: lungs clear, normal breath sounds Cardiovascular: regular rate, rhythm Abdomen: normal bowel sounds, non tender, soft Fundus: Firm, Non-Tender, Relation to Umbilicus (at u) Extremities: non-tender, normal inspection, + pedal edema (tr) Assessment and Plan Problem List Medical Problems: (1) Hypertension Status: Acute (2) Status: Acute Post- Day#: 2 Continue Routine Care: Doing well. Plan d/c. Instructions given.
--- NOTE | 2017-02-22 09:18 | Discharge Instructions ---
Discharge Instructions Date of Service Feb 22, 2017. Admission Reason for Admission: Induction Discharge Discharge Diagnosis / Problem: s/p vaginal delivery Discharge Goals Goal(s): Routine recovery after delivery Medications Continue Dispensed Medications: supercream, dermaplast, tucks, lansinoh Activity Recommendations Activity Limitations: per Instructions/Follow-up section . Instructions / Follow-Up Instructions / Follow-Up ACTIVITY RECOMMENDATIONS: * Gradual return to full activity over the next 2-3 weeks. * No lifting - nothing heavier than baby over the next 2-3 weeks. * Do not engage in vigorous exercise, sexual activity or sports until cleared by your physician. * Do not drive or operate any motorized equipment until cleared by your physician. * You may shower/bathe daily. MEDICATIONS: For discomfort or pain, you may use Acetaminophen (Tylenol), Ibuprofen (Advil), or Naproxen (Aleve) following the package directions. For constipation you may use Colace following the package directions. BREAST CARE: If you are not breast feeding: * Wear a supportive bra 24 hours a day for one to two weeks. * Avoid stimulating your breasts and nipples as much as possible during the first few weeks after delivery. * When taking a shower, have the warm water hit your back, not breasts. * When your breasts feel full, apply ice packs. Usually three to four times a day helps ease the discomfort. * Take a mild pain medication (Tylenol / Motrin) when you are uncomfortable. If breast feeding: * Use breast milk to lubricate nipples. Lansinoh cream may be used for sore nipples. You do not need to remove cream prior to breast feeding. If using a different brand of cream, check the label for directions regarding removal of cream prior to nursing. * Wear a supportive bra. * If having problems with breasts or breast feeding, call a art sales consultant or your health care provider. EPISIOTOMY CARE: After delivery, if you have an episiotomy (stitches), the following steps will ease discomfort and aid healing. * For the first 24 hours after delivery, place ice packs next to your episiotomy to help reduce swelling. * After the first 24 hour-period, sitz baths, either portable or in the tub, are suggested. A shower with a shower arm sprayed over the episiotomy may be comforting. * Rimma care should be done after each voiding and bowel movement. Squirt warm water from a plastic bottle over the perineum (region of the body between the anus and urinary opening) and pat dry. * Use Dermoplast to ease discomfort. Shake container. Cope directly over the episiotomy. Place a Tucks on a clean sanitary pad next to your episiotomy. SPECIAL CARE INSTRUCTIONS: When you are discharged from the hospital, it is important for you to follow the instructions listed below: * During the first week at home, you should be able to care for yourself and your baby. In addition, the usual light household activities are encouraged. * Limit your activities to the way you feel. Do not try to clean the house or move furniture. Be sensible. * If you actively engage in sports and have done so up until the time of your delivery, you may resume these activities as soon as you feel able. This may take up to one month or even longer. Use good judgment. * Continue to take your vitamins for at least six weeks after the of your baby. * Your diet need not be limited unless you were on a special diet before your delivery. Breast-feeding mothers need around 2500 calories per day and at least 64-80 ounces of fluid per day (8 to 10 glasses). * You should eat foods from the four major food groups. Crash diets or fad diets are to be avoided. Eating lean meats, fresh fruits and vegetables, low-fat dairy products, high fiber foods and a regular exercise program, will help you get back to your pre- weight without putting your health at risk. * Constipation is sometimes a problem after delivery. Take a mild laxative as needed. If breast feeding, Milk of Magnesia is acceptable to use. You may use a suppository or Fleets enema if no episiotomy. * A daily shower or tub bath is suggested. Be sure to thoroughly and gently dry the perineum. * A bloody vaginal discharge will usually continue until around four weeks post . A small amount of bleeding may continue for as long as six weeks. Vaginal discharge changes from the bright red bleeding after delivery to pink then brownish and finally yellowish-pink before becoming white and disappearing. * Bleeding may increase with activity. Your first period may come in 4-8 weeks. If you are breast feeding, your period may be delayed even longer. * Katy (sex) can begin whenever both you and your partner feel comfortable and do not have any form of genital infection. It is recommended that you wait at least six weeks for internal and external healing to occur. If you have questions, please talk to your health care practitioner. A condom should be used to prevent infection and . * Foreplay, gentle intercourse and lubrication is very important the first several times to prevent pain. A water-based lubricant such as K-Y jelly or Astroglide may be used. * If you have RH negative blood and your baby is RH positive, you will receive RHOGAM by injection prior to discharge. The nurse will give you a card to keep with you that has the date and place that you received RHOGAM after delivery. * During your care, you had a Rubella screen done to check for the presence of rubella antibodies in your blood. If your test was negative, you will receive a Rubella vaccine prior to discharge. This vaccine may cause a fever, soreness at the injection site and flu-like symptoms. If these symptoms persist, notify your health care practitioner. is not advised for one month after a Rubella vaccine. * Verbalizes understanding of car seat law as reviewed with patient nursing. * Car Seat hand-out given and reviewed with patient by nursing. * Shaken baby information reviewed with patient by nursing. Call you doctor if: * Heavy bleeding (saturating several pads an hour) or passing clots the size of your fist. * A fever >101 degrees F (38.3 degrees C) on two occasions four hours apart and /or chills. * Unusual pain in the pelvic or vaginal areas. * "Baby Blues" lasting longer than two weeks. If you have any questions or concerns, call your health care practitioner at . FOLLOW UP VISIT: * Please call the office at to schedule a 6 week examination. It is important you keep this appointment. It is important for you to make arrangements for either yearly or twice yearly check-ups thereafter. Current Hospital Diet Patient's current hospital diet: Gluten Free Diet Discharge Diet Recommended Diet: Regular Diet Pending Studies Studies pending at discharge: no Medical Emergencies . Who to Call and When: Medical Emergencies: If at any time you feel your situation is an emergency, please call 911 immediately. . Non-Emergent Contact Non-Emergency issues call your: Adult Education Professional . . "Provider Documentation" section prepared by No Medina. . VTE Core Measure Inpt VTE Proph given/why not?: Treatment not indicated
[2017-02-22 10:55] VITALS: BP_DIAS 94; PULSE 94; TEMP 36.7
== END 2017-02-22 10:59 | disposition home or self-care (01) | DRG 774 ==
LOC: C.LD 07:35 → C.OBG 02-21 01:27
PROVIDERS: ADMIT Obstetrics & Gynecology; ATTEND Obstetrics & Gynecology
PROC: 10E0XZZ Delivery of Products of Conception, External Approach (ICD-10-PCS; principal; 2017-02-20)
PROC: 0UQC0ZZ Repair Cervix, Open Approach (ICD-10-PCS; principal; 2017-02-20)
PROC: 3E033VJ Introduction of Other Hormone into Peripheral Vein, Percutaneous Approach (ICD-10-PCS; principal; 2017-02-20)
PROC: 0KQM0ZZ Repair Perineum Muscle, Open Approach (ICD-10-PCS; principal; 2017-02-20)
DX: O10.92 Unspecified pre-existing hypertension complicating childbirth (principal); O71.3 Obstetric laceration of cervix; O70.1 Second degree perineal laceration during delivery; O09.523 Supervision of elderly multigravida, third trimester; Z3A.39 39 weeks gestation of pregnancy; Z37.0 Single live birth

== ENCOUNTER → 2017-12-28 | Outpatient (CLI) | payer OTHER | END | disposition home or self-care (01) | LOC: C.LABSPEC 16:53 | PROVIDERS: ATTEND Obstetrics & Gynecology | DX: Z30.430 Encounter for insertion of intrauterine contraceptive device (principal) ==

== ENCOUNTER → 2018-01-25 | Outpatient (CLI) | payer OTHER | END | disposition home or self-care (01) | LOC: C.LAB 06:41 | PROVIDERS: ATTEND Nurse Practitioner | DX: Z00.00 Encounter for general adult medical examination without abnormal findings (principal) ==